=== PATIENT | male | born 1935 | race Two or more races ===

== ENCOUNTER 2016-10-24 16:56 | Emergency (ER) | payer OTHER ==
[~2016-10-24] VITALS: Ht 157.5 cm; Wt 81.6 kg
[2016-10-24 17:19] LABS: BASOPHILS % (AUTO) 0.3 % (0.0-2.0); EOSINOPHILS # (AUTO) 0.1 /CMM (0.0-0.7); EOSINOPHILS % (AUTO) 0.5 % (0.0-6.0); HEMATOCRIT 39 % (39-51); HEMOGLOBIN 13.2 g/dL (13.5-17.5); LYMPHOCYTES # (AUTO) 1.5 /CMM (0.8-4.8); LYMPHOCYTES % (AUTO) 15.1 % (20.0-44.0); MEAN CORPUSCULAR HEMOGLOBIN 29 PG (26.0-33.0); MEAN CORPUSCULAR HGB CONC 34 g/dl (31.0-36.0); MEAN CORPUSCULAR VOLUME 86 fL (80-96); MONOCYTES # (AUTO) 0.8 /CMM (0.1-1.30); MONOCYTES % (AUTO) 7.9 % (2.0-12.0); NEUTROPHILS # (AUTO) 7.7 /CMM (1.8-8.9); NEUTROPHILS % (AUTO) 76.2 % (43.0-81.0); PLATELET COUNT (AUTO) 226 /CMM (150-450); RDW COEFFICIENT OF VARIATION 13.9 (11.5-15.0); RED BLOOD CELL COUNT(AUTO) 4.56 MIL/uL (4.5-6.0); WHITE BLOOD COUNT (AUTO) 10.1 K/uL (4.3-11.0)
[2016-10-24 17:40] LABS: ALANINE AMINOTRANSFERASE 16 U/L (12-78); ALBUMIN 3.6 g/dL (3.4-5.0); ALKALINE PHOSPHATASE 87 U/L (46-116); ASPARTATE AMINOTRANSFERASE 16 U/L (15-37); BILIRUBIN,DIRECT 0.1 mg/dL (0.0-0.2); BILIRUBIN,TOTAL 0.5 mg/dL (0.2-1.0); CARBON DIOXIDE 27 mmol/L (21-32); CHLORIDE 109 mmol/L (98-107); CREATININE 1.8 mg/dL (0.6-1.3); GLUCOSE 147 mg/dL (74-106); SODIUM SERUM 145 mmol/L (136-145); TOTAL PROTEIN, SERUM 6.8 g/dL (6.4-8.2); UREA NITROGEN, BLOOD 42 mg/dL (7-18)
[2016-10-24 17:41] LABS: CALCIUM, SERUM 8.9 mg/dL (8.5-10.1)
[2016-10-24 17:42] LABS: TROPONIN I < 0.017 ng/mL (0.00-0.056)
[2016-10-24 17:45] LABS: INR 1.02 (0.87-1.13); PROTHROMBIN TIME 10.6 SECS (9.5-12.7)
[2016-10-24] MEDS ORDERED: ASPI81TA2 PO (17:45)
[2016-10-24] MEDS ORDERED: PRAZ2CAP2 PO (17:45)
[2016-10-24] MEDS ORDERED: GLIP10TA11 PO (17:45)
[2016-10-24] MEDS ORDERED: PIOG15TA3 PO (17:45)
[2016-10-24] MEDS ORDERED: METF500T4 PO (17:45)
[2016-10-24] MEDS ORDERED: ATEN25TA PO (17:45)
[2016-10-24] MEDS ORDERED: SIMV40TA5 PO (17:45)
[2016-10-24] MEDS ORDERED: LEVO25TA9 PO (17:45)
[2016-10-24] MEDS ORDERED: LISI40TA4 PO (17:45)
[2016-10-24] MEDS ORDERED: HUM10VIA SQ ×2 (17:46)
--- NOTE | 2016-10-24 18:15 | NUR ---
CALLED [facility], PRESENTED PT, AWAITING CALL BACK FROM [facility]
[2016-10-24] MEDS ORDERED: FUROSEMIDE 20 MG/2 ML VIAL ONE (18:35)
[2016-10-24] MEDS ORDERED: NITROGLYCERIN PACKET 1 GM PACKET TD ONE (19:00)
[2016-10-24] MEDS ORDERED: FUROSEMIDE 20 MG/2 ML VIAL IV ONE (19:00)
--- NOTE | 2016-10-24 19:05 | NUR ---
REPORT REC'D FROM DRE JIMENEZ FOR [facility].
[2016-10-24] MEDS ORDERED: NITROGLYCERIN PACKET 1 GM PACKET ONE (19:15)
--- NOTE | 2016-10-24 19:26 | NUR ---
PT ACCEPTED AT [facility]. ACCEPTED BY DR BERNARD. # FOR REPORT [phone]. ETA 2030
[2016-10-24 19:31] VITALS: BP 140/75
--- NOTE | 2016-10-24 19:35 | NUR ---
Report given to DRE GRAY.
--- NOTE | 2016-10-24 20:37 | NUR ---
REPORT GIVEN TO [facility] EMT. PT BEING TRANSFERRED OUT.
== END 2016-10-24 20:47 | disposition short-term general hospital (02) ==
LOC: ER 16:56
DX: R07.89 Other chest pain (principal); I50.9 Heart failure, unspecified; R39.2 Extrarenal uremia; I10 Essential (primary) hypertension; E78.00 Pure hypercholesterolemia, unspecified; E11.9 Type 2 diabetes mellitus without complications; Z79.4 Long term (current) use of insulin; Z79.82 Long term (current) use of aspirin
CPT/HCPCS: 36415; 71010; 80048; 80076; 83880; 84484; 85025; 85730; 93005; 96374; 99291; A4606; J1940; Z7610

== ENCOUNTER 2021-12-06 19:08 | Emergency (ER) | payer OTHER ==
[~2021-12-06] VITALS: Ht 172.7 cm; Wt 68.0 kg
[~2021-12-06 19:08] MED LIST: ASPI-1169 PO; ATEN25TA PO; GLIP10TA11 PO; HUM10VIA SQ; LEVO25TA9 PO; LISI40TA13 PO; METF-440 PO; PIOG15TA8 PO; PRAZ2CAP2 PO; SIMV-49 PO
--- NOTE | 2021-12-06 19:15 | NUR ---
TO ER BED 2. [id number] FRM HOME FOR MORE ALTERED THAN NORMAL LKW YESTERDAY MORNING, R SIDED WEAKNESS NOTED BY FAMILY. PT AAOX1. BREATHING IS EVEN AND NONLABORED. CONNECTED TO MONITOR. AWAITING MD CHILD
--- NOTE | 2021-12-06 19:23 | NUR ---
BLOOD OBTAINED AND SENT TO LAB
--- NOTE | 2021-12-06 19:23 | NUR ---
COVID SWAB COLLECTED AND SENT TO LAB
--- NOTE | 2021-12-06 19:59 | NUR ---
PT RETURNED TO ER BED [address]
[2021-12-06 20:36] LABS: BASOPHILS % (AUTO) 0.6 % (0.0-2.0); EOSINOPHILS % (AUTO) 0.1 % (0.0-6.0); HEMATOCRIT 31 % (39-51); HEMOGLOBIN 10.3 g/dL (13.5-17.5); LYMPHOCYTES # (AUTO) 0.5 K/uL (0.8-4.8); LYMPHOCYTES % (AUTO) 6.8 % (20.0-44.0); MEAN CORPUSCULAR HGB CONC 33 g/dl (31.0-36.0); MEAN CORPUSCULAR VOLUME 82 fL (80-96); MONOCYTES # (AUTO) 1.1 K/uL (0.1-1.30); MONOCYTES % (AUTO) 14.3 % (2.0-12.0); NEUTROPHILS # (AUTO) 6.3 K/uL (1.8-8.9); NEUTROPHILS % (AUTO) 78.2 % (43.0-81.0); PLATELET COUNT (AUTO) 171 K/uL (150-450); RED BLOOD CELL COUNT(AUTO) 3.75 MIL/uL (4.5-6.0)
--- NOTE | 2021-12-06 20:50 | NUR ---
COVID ANTIGEN POSITIVE DR. WADE NOTIFIED. CONTACT DROPLET [facility] IN PLACE
[2021-12-06 21:15] LABS: ALANINE AMINOTRANSFERASE 25 U/L (12-78); ALBUMIN 3.6 g/dL (3.4-5.0); ALKALINE PHOSPHATASE 119 U/L (46-116); ASPARTATE AMINOTRANSFERASE 27 U/L (15-37); BILIRUBIN,DIRECT 0.2 mg/dL (0.0-0.2); BILIRUBIN,TOTAL 0.9 mg/dL (0.2-1.0); CALCIUM, SERUM 8.6 mg/dL (8.5-10.1); CARBON DIOXIDE 24 mmol/L (21-32); CHLORIDE 107 mmol/L (98-107); CREATININE 1.5 mg/dL (0.6-1.3); POTASSIUM 4.1 mmol/L (3.5-5.1); SODIUM SERUM 141 mmol/L (136-145); TOTAL PROTEIN, SERUM 7.2 g/dL (6.4-8.2); UREA NITROGEN, BLOOD 23 mg/dL (7-18)
--- NOTE | 2021-12-06 21:18 | NUR ---
DR. WADE ON PHONE CALL WITH DR. MANDEEP EARLY
[2021-12-06 21:25] LABS: GLUCOSE 144 mg/dL (74-106)
--- NOTE | 2021-12-06 21:31 | NUR ---
URINE COLLECTED AND SENT TO LAB
[2021-12-06] MEDS ORDERED: IV NS 0.9% 1,000 ML BAG IV ONE (22:00)
[2021-12-06 22:09] LABS: BILIRUBIN,URINE NEGATIVE (NEGATIVE); COLOR,URINE YELLOW (YELLOW); LEUKOCYTE ESTERASE ,URINE NEGATIVE (NEGATIVE); NITRITE, URINE NEGATIVE (NEGATIVE); PROTEIN,URINE NEGATIVE (NEGATIVE); UGLUCOSE NEGATIVE (NEGATIVE); UROBILINOGEN,URINE 0.2 EU/dL (0.2)
[2021-12-06] MEDS ORDERED: ENALAPRILAT DIHYD. (2.5MG/2ML) 1.25 MG/ML VIAL IV ONE (22:30)
--- NOTE | 2021-12-06 22:48 | NUR ---
ARELIS FROM [facility] WITH TRANSFER INFO ACCEPTED [facility] ER REPORT TO [phone] ARNOLD VOICE INSTRUCTOR TIME 0100 [facility]
[2021-12-06] MEDS ORDERED: ENALAPRILAT INJ (1.25 MG/ML) 1.25 MG/ML VIAL IV ONE (23:02)
--- NOTE | 2021-12-06 23:38 | NUR ---
REPORT GIVEN TO DRE DOLL
[2021-12-07] MEDS ORDERED: hydrALAZINE HCL IV 20 MG VIAL IV ONE (00:30)
[2021-12-07] MEDS ORDERED: hydrALAZINE HCL IV 20 MG VIAL ONE (00:44)
--- NOTE | 2021-12-07 01:25 | NUR ---
[facility] AT BEDSIDE FOR TRANSPORT
--- NOTE | 2021-12-07 01:38 | NUR ---
ADLS DONE LARGE URINE NOTED; PT KEPT CLEAN & DRY. SKIN INTACT.
[2021-12-07 02:18] VITALS: BP 180/98
== END 2021-12-07 02:18 | disposition short-term general hospital (02) ==
LOC: ER 19:19
DX: U07.1 COVID-19 (principal); G93.40 Encephalopathy, unspecified; R53.1 Weakness; R91.8 Other nonspecific abnormal finding of lung field; Z95.2 Presence of prosthetic heart valve; I45.10 Unspecified right bundle-branch block; I11.9 Hypertensive heart disease without heart failure; E11.9 Type 2 diabetes mellitus without complications; Z79.4 Long term (current) use of insulin; Z79.84 Long term (current) use of oral hypoglycemic drugs; Z79.899 Other long term (current) drug therapy
CPT/HCPCS: 99285; 96374; 70450; 71045; 96361; 87426; 93005; 85025; 80048; 80076; 81003; 36415; 84484; 85730; 82962; 96375; J3490; C9803; J0360